=== PATIENT | male | born 1965 | race Caucasian/White ===

== ENCOUNTER 2019-01-06 11:03 | Emergency (ER) | payer OTHER ==
[~2019-01-06] VITALS: Ht 190.5 cm; Wt 124.7 kg
--- OUTSIDE RECORDS SUMMARY | ~2019-01-06 | XMS | Encounter Summary ---
Demographics + + + | Address | [address] | | | [place] [address] | + + + | Home Phone | | + + + | Preferred Language | Unknown | + + + | Marital Status | | + + + | Taoism Affiliation | Unknown | + + + | Race | Unknown | + + + | Ethnic Group | Unknown | + + + Author + + + | Author | [facility] | | | and [place] | + + + | Organization | [facility] | | | and [place] | + + + | Address | Unknown | + + + | Phone | Unavailable | + + + Support + + +---------+ + | Name | Relationship | Address | Phone | + + +---------+ + | Tata Kessler | ECON | Unknown | | + + +---------+ + Care Team Providers + +------+ + | Care Accounting Analyst Name | Role | Phone | + +------+ + | Gemini Castorena | PCP | | + +------+ + Reason for Referral Diagnostic/Screening (Routine) +--------+--------+ + + + + | Status | Reason | Specialty | Diagnoses / | Referred By | Referred To | | | | | Procedures | Contact | Contact | +--------+--------+ + + + + | Closed | | | Diagnoses | Yannick, | OP ST | | | | | Injury of | Justin | PAOLA | | | | | left | Matthew, | [facility] | | | | | shoulder, | MD [address] | [address] | | | | | initial | [address] | [address]VE | | | | | encounter | [place], | [place], [place] | | | | | Procedures | [place] | [address] | | | | | MRI Shoulder | [address] | Phone: | | | | | Left wo | Phone: | [phone] | | | | | Contrast | [phone] | Fax: | | | | | | Fax: | [phone] | | | | | | [phone] | | +--------+--------+ + + + + Reason for Visit + + + | Reason | Comments | + + + | New Patient | | + + + | Shoulder Pain | Left. Onset 2014 | + + + Evaluate & Treat (Routine) +--------+--------+ + + + + | Status | Reason | Specialty | Diagnoses / | Referred By | Referred To | | | | | Procedures | Contact | Contact | +--------+--------+ + + + + | Closed | | Orthopedic | Diagnoses | Raffaele, | Yannick, | | | | Surgery | Sprain of | LAWSON James | Justin | | | | | left rotator | [address] | MD Matthew | | | | | cuff | [address] | [address] | | | | | capsule, | [place], | [place] | | | | | initial | [place] | [place] | | | | | encounter | [address] | [address] | | | | | | Phone: | Phone: | | | | | | [phone] | [phone] | | | | | | Fax: | Fax: | | | | | | [phone] | [phone] | +--------+--------+ + + + + Encounter Details +--------+---------+ + + + | Date | Type | Department | Care Team | Description | +--------+---------+ + + + | 12/04/ | Office | [facility] | Justin Lanier | Injury of left | | 2019 | Visit | ORTHOPEDIC SURGERY | MD Matthew [address] | shoulder, initial | | | | [address] [facility] | [address] [place] | encounter (Primary | | | | [place], [place] | [place] [address] | Dx) | | | | [address] | [phone] | | | | | [phone] | | | +--------+---------+ + + + Social History + +-------+ +--------+------+ | Tobacco Use | Types | Packs/Day | Years | Date | | | | | Used | | + +-------+ +--------+------+ | Never Smoker | | | | | + +-------+ +--------+------+ + +---+---+---+ | Smokeless Tobacco: | | | | | Never Used | | | | + +---+---+---+ + + | Comments: Smokes a cigar once a year | + + + + +---------+ + | Alcohol Use | Drinks/We | oz/Week | Comments | | | ek | | | + + +---------+ + | Yes | 0 | 0.0 | 1 Drink weekly than couple on weekends | | | Standard | | | | | drinks or | | | | | | | | | | equivalen | | | | | t | | | + + +---------+ + + + + | Sex Assigned at | Date Recorded | | | | + + + | Not on file | | + + + + + + + | Job Start Date | Occupation | Industry | + + + + | Not on file | Not on file | Not on file | + + + + + + + + | Travel History | Travel Start | Travel End | + + + + + + | No recent travel history available. | + + documented as of this encounter Last Filed Vital Signs + + + + | Vital Sign | Reading | Time Taken | + + + + | Blood Pressure | - | - | + + + + | Pulse | - | - | + + + + | Temperature | - | - | + + + + | Respiratory Rate | - | - | + + + + | Oxygen Saturation | - | - | + + + + | Inhaled Oxygen | - | - | | Concentration | | | + + + + | Weight | 121.1 kg (267 lb) | 12/04/2018 1038 PST | + + + + | Height | 190.5 cm (6' 3") | 12/04/2018 1038 PST | + + + + | Body Mass Index | 33.37 | 12/04/2018 1038 PST | + + + + documented in this encounter Functional Status + + + + | Functional Status | Response | Date of Assessment | + + + + | Are you deaf or do you have serious | No | 08/19/2015 | | difficulty hearing? | | | + + + + | Are you blind or do you have serious | No | 08/19/2015 | | difficulty seeing, even when wearing | | | | glasses? | | | + + + + | Do you have serious difficulty walking or | No | 08/19/2015 | | climbing stairs? (5 years old or older) | | | + + + + | Do you have difficulty dressing or bathing? | No | 08/19/2015 | | (5 years old or older) | | | + + + + | Because of a physical, mental, or emotional | No | 08/19/2015 | | condition, do you have difficulty doing | | | | errands alone such as visiting a doctor's | | | | office or shopping? [15 years old or | | | | older)] | | | + + + + + + + + | Cognitive Status | Response | Date of Assessment | + + + + | Because of a physical, mental, or emotional | No | 08/19/2015 | | condition, do you have serious difficulty | | | | concentrating, remembering, or making | | | | decisions? (5 years old or older) | | | + + + + documented as of this encounter Patient Instructions Patient Instructions Justin Lanier MD - 12/04/2018 12:32 PST RICE RICE stands for rest, ice, compression, and elevation. Doing these things helps limit pain and swelling after an injury. RICE also helps injuries heal faster. Use RICE for sprains, st rains, and severe bruises or bumps. Follow the tips on this handout and begin RICE as soon a s possible after an injury. Rest Pain is your body s way of telling you to rest an injured area. Whether you have hurt an elbow, hand, foot, or knee, limiting its use will prevent further injury and help you heal. Ice Applying ice right after an injury helps prevent swelling and reduce pain. Don t place ic e directly on your skin. Wrap a cold pack or bag of ice in a thin cloth. Place it over the injured area. Ice [id number]. Don t ice for more [id number] at a time. Compression Putting pressure (compression) on an injury helps prevent swelling and provides support. Wrap the injured area firmly with an elastic bandage. If your hand or foot tingles, beco mes discolored, or feels cold to the touch, the bandage may be too tight. Rewrap it more loo sely. If your bandage becomes too loose, rewrap it. Do not wear an elastic bandage overnight. Elevation Keeping an injury elevated helps reduce swelling, pain, and throbbing. Elevation is most ef fectivewhen the injury is kept elevated higher than the heart. Call your healthcare provider if you notice any of the following: Fingers or toes feel numb, are cold to the touch, or change color. Skin looks shiny or tight. Pain, swelling, or bruising worsens and is not improved with elevation. Date Last Reviewed: 01/28/201819990933-0572 As Seen on TV. [address] [place] [address]. All righ ts reserved. This information is not intended as a substitute for professional medical care. Always follow your healthcare professional's instructions. documented in this encounter Progress Notes Justin Lanier MD - 12/04/2018 1100 PSTFormatting of this note might be differe nt from the original. [facility] HISTORY AND PHYSICAL EXAMINATION Pt. Name/Age/: Jeancarlos Kessler 53 y.o. 1965 Primary Care Physician: Gemini Castorena Chief Complaint/Reason for Visit: New Patient and Shoulder Pain (Left. Onset 2014) History of Present Illness: The patient is a pleasant 53 y.o. male who presents with a 4 ye ar history of left shoulder pain. He states that it began after he had cervical neck surger y. He had C5-C6 and C7 fused. After surgery, he initially had considerable weakness in his left shoulder. That improved to some degree but he has had at least intermittent pain sinc e that time. Moving his arm up and across his body makes his pain worse. He has tried anti -inflammatories, physical therapy, ice, heat and healthcare marketer. None of those helped si gnificantly. Rest makes his pain better. He has been able to get back to doing things that he lives such as weight lifting. He recently tried to do pushups but was unable to do them after a week due to pain. He feels like he has been slowly getting worse. He is able do m ost of his normal daily activities albeit with adjustments. He does not use tobacco. He lo calizes most of the pain to his anterior shoulder. He also complains of intermittent left hand numbness and tingling involving the thumb, inde x and fingers. This usually happens when he is doing certain activities such as gripping an d we'll. It has been present for years and is not getting worse Past Medical History: Past Medical History: Diagnosis Date Adverse effect of anesthesia wakes up during surgery; tries to get out of bed before completely awake Arthritis Gout Hypertension Osteoarthritis RA (rheumatoid arthritis) ([facility]) Sleep apnea "borderline" no CPAP Past Surgical History: Procedure Laterality Date ANTERIOR CRUCIATE LIGAMENT REPAIR 1983 left knee APPENDECTOMY 2011 broken arm 1977 left CERVICAL SPINE SURGERY N/A 08/18/2015 Procedure: C5-6, C6-7 Anterior Cervical Discectomy w/ Fusion and Plating; Surgeon: Alvaro Rose DO; Location: [facility] [place] MAIN OR REFRACTIVE SURGERY WISDOM TOOTH EXTRACTION Allergies: No Known Allergies Current Medications: Current Outpatient Prescriptions Medication Sig Dispense Refill acetaminophen (TYLENOL) 500 mg tablet Take 500 mg by mouth as needed for Pain. cyclobenzaprine (FLEXERIL) 10 mg tablet Take 1 tablet by mouth every 8 hours as needed for Muscle spasms. (Patient not taking: Reported on 12/04/2018) 60 tablet 3 HYDROcodone-acetaminophen (NORCO) 5-325 mg per tablet Take 1-2 tablets by mouth every 4 hours as needed for Pain. (Patient not taking: Reported on 12/04/2018) 90 tablet 0 indomethacin (INDOCIN SR) 75 mg CR capsule Take 75 mg by mouth 2 times daily. lisinopril-hydrochlorothiazide (PRINZIDE,ZESTORETIC) 20-12.5 MG per tablet Take 1 table t by mouth Daily. Multiple Vitamins-Minerals (MULTIVITAMIN PO) Take by mouth Daily. [place]-3 Fatty Acids (OMEGA 3 PO) Take 1 capsule by mouth Daily. No current facility-administered medications for this visit. Family History: Family History Problem Relation Age of Onset Migraines Mother Headache Mother Heart disease Mother Other (see comment) Mother back or neck prob Cancer Father skin cancer Heart disease Father High blood pressure Father Arthritis Father Social History: Social History Social History Marital status: Spouse name: N/A Number of children: N/A Years of education: N/A Occupational History Not on file. Social History Main Topics Smoking status: Never Smoker Smokeless tobacco: Never Used Comment: Smokes a cigar once a year Alcohol use 0.0 oz/week Comment: 1 Drink weekly than couple on weekends Drug use: No Comment: In the past 1989 Sexual activity: Not on file Other Topics Concern Not on file Social History Narrative No narrative on file Review of Systems All of these are negative unless otherwise marked Eyes: [] Double vision [x] Glasses/contacts [] Failing vision Respiratory: [] Asthma/Wheezing [] Pneumonia [] Night sweats [] Shortness of breath [] Chronic cough [] Coughing up blood [] Exposure to tuberculosis Cardiovascular: [] Heart Problems [x] Hypertension [] Heart murmur [] Palpitations [] Rheumatic fever [] Phlebitis [] Chest pain [] Ankle swelling [] Leg cramps [] Racin g heart [x] Skipping beats [] Blood clots Urinary Tract: [] Painful urination [] Kidney Stones [] Any urine leakage [] Weak urine stream [] Night urination [] Urine infections [] Bedwetting [] Blood in urine Ear/Nose/Throat: [] Frequent Colds [] Sinus Disease [] Nose obstruction [x] Sneezing Spells [] Change in taste [] Artificial teeth [x] Ears ringing [] Ear pain [x] Hearing lo ss [] Teeth problems [] Hoarseness [] Neck swelling [] Sore throat [] Congestion [] Nosebleeds [] Nasal allergies Gastrointestinal: [] Abdominal pain [] Heartburn [] Blood from rectum [] Colitis [] Gallbladder problems [] Troubl e swallowing [] Bloated stomach [] Change in stools [] Vomiting blood [] Nausea [] Hemorrhoids [] Jaundice [ ] Hepatitis [] Diarrhea [] Constipation [] Diverticulitis Musculoskeletal: [] Physical handicaps [x] Back or shoulder pain [x]Rheumatoid disease [x] Osteoarthritis [x] Joint pain [x] Joint swelling [x]Gout [x] Leg cramps at night Skin: [x] Skin rashes [] Itching/Burning [] Skin bruises easi ly [] Artificial tanning [] Skin cancer [] Hair loss [] Changes in moles Psychiatric: [] Depression [] Suicidal thoughts [x] Sleep pattern changes [] Appetite changes [] Recent counseling [] Nervousness/anxiety [] Physical violence [] Marital problems Neurological: [x] Headaches [] Seizures [] Stroke/TIA [] Faintness [] Tremors [x] Numbness [] Dizziness [] Changes in handwriting [] Memory loss [x] Shooting pains Endocrine: [] Thyroid [] Diabetes Systemic: []Weight loss/gain (over 10 lbs) []Fever/chills []Fatigue [] Sleeping Difficulties [] Speech change [] Voice change Admission Weight: Weight: 121.1 kg (267 lb) BMI: Body mass index is 33.37 kg/m. Physical Examination: Ht 1.905 m (6' 3") | Wt 121.1 kg (267 lb) | BMI 33.37 kg/m General: Alert, oriented, no acute distress HEENT: Normocephalic, atraumatic Cardiovascular: Regular rate and rhythm Respiratory: Breathing normally at a regular rate Ortho Exam Left Shoulder Exam Right Left Forward Flexion 160 160 Abduction 160 160 External Rotation 60 40 Internal rotation T10 L2 Tender to Palpation: AC joint External Rotation Strength 4/5 Internal Rotation Strength 5/5 Hawkin's Negative Neer's Positive Lynne's Positive Speed's Negative Yergason's Negative Skin: intact Radial pulse 2+. Sensation intact to light touch in the first dorsal webspace, and the pads of the small and index fingers. Able to flex and extend the thumb at the interphalangeal venecia int, make an "ok" sign, adduct and abduct the fingers, and oppose the thumb to the small fin dipti. Positive Tabatha's compression test at the carpal tunnel with positive Tinel's of the carpal tunnel per Diagnostic Studies: Imaging 2 views of the left shoulder demonstrate no fractures or dislocations. The humeral head is centered on the glenoid. There is some acromioclavicular joint arthrosis noted. There is no significant glenohumeral osteoarthrosis. There is mild cystic change at the greater tube rosity. Previous electrodiagnostic testing performed on 01/10/2017 demonstrated no sign of cervical radiculopathy or carpal tunnel. Labs- Lab Results Component Value Date NA 142 07/27/2015 K 3.6 07/27/2015 CL 106 07/27/2015 CO2 28 07/27/2015 ANIONGAP 8 07/27/2015 GLU 96 07/27/2015 BUN 14 07/27/2015 CREA 0.85 07/27/2015 GFRNONAA >60 07/27/2015 CALCIUM 10.0 07/27/2015 WBC 7.2 07/27/2015 HGB 16.1 07/27/2015 HCT 47.1 07/27/2015 MCV 96.5 07/27/2015 PLT 160 07/27/2015 INR 0.97 07/27/2015 Assessment and Plan: 1. Injury of left shoulder, initial encounter XR Shoulder Left 2 + Vw MRI Shoulder Left wo Contrast The patient is a pleasant 53 y.o. male who presents with upper extremity weakness and pain after previous surgery. Treatment options were discussed with the patient including non-oper ative treatment modalities. Considering the nature of the patient's condition, decision was made to proceed with an MRI of the left shoulder. He is guarding been through therapy twice . This will rule out a large rotator cuff tear. If he had one, I think that we were treati ng surgically. If not, we can begin trying more nonoperative treatment modalities. He woul d like to get his MRI in [place] and I think that is reasonable. We'll see him back after the MRI.. Follow-up: Return After MRI. with no x-ray Portions of this report were transcribed using voice recognition software. Every effort wa s made to ensure accuracy; however, inadvertent computerized programming coordinator errors may be pre sent. I appreciate the opportunity to help with the management of this patient. Justin Lanier MD documented in this encounter Plan of Treatment + +--------+ + + | Name | Priori | Associated Diagnoses | Order Schedule | | | ty | | | + +--------+ + + | MRI Shoulder Left wo Contrast | Routin | Injury of left | Expected: | | | e | shoulder, initial | 12/04/2018, Expires: | | | | encounter | 12/05/2019 | + +--------+ + + documented as of this encounter Results XR Shoulder Left 2 + Vw (12/04/2018 10:37 PST) + + | Specimen | + + | | + + + + + | Narrative | Performed At | + + + | XR SHOULDER LEFT 2 + VW 12/04/2018 10:37 AM HISTORY: LEFT SHOULDER | [facility] | | INJURY. COMPARISON: None. FINDINGS: There are no acute | | | osseous findings. Moderate degenerative changes are present of the AC | | | joint with adjacent ossifications. The glenohumeral joint is intact. | | | Bone mineralization is normal. Mild scarring is in the left midlung. | | | Soft tissue structures are unremarkable. IMPRESSION - No acute | | | osseous findings. Moderate degenerative changes of AC joint. | | | Dictated and Signed by: Sukumar Ontiveros MD Electronically signed: | | | 12/04/2018 11:03 AM | | + + + + + | Procedure Note | + + | Henry, Rad Results In - 12/04/2018 1107 PST XR SHOULDER LEFT 2 + VW 12/04/2018 10:37 AM | | | | HISTORY: LEFT SHOULDER INJURY. | | | | COMPARISON: None. | | | | FINDINGS: | | There are no acute osseous findings. Moderate degenerative changes are present | | of the AC joint with adjacent ossifications. The glenohumeral joint is intact. | | Bone mineralization is normal. Mild scarring is in the left midlung. Soft tissue | | structures are unremarkable. | | | | IMPRESSION - | | No acute osseous findings. | | | | Moderate degenerative changes of AC joint. | | | | Dictated and Signed by: Sukumar Ontiveros MD | | Electronically signed: 12/04/2018 11:03 AM | + + + +---------+ + + | Performing | Address | City/State/Zipcode | Phone Number | | Organization | | | | + +---------+ + + | [facility] | | | | + +---------+ + + documented in this encounter Visit Diagnoses + + | Diagnosis | + + | Injury of left shoulder, initial encounter - Primary | + + documented in this encounter
--- OUTSIDE RECORDS SUMMARY | ~2019-01-06 | XMS | Encounter Summary ---
Demographics + + + | Address | [address] | | | [place] [address] | + + + | Home Phone | | + + + | Preferred Language | Unknown | + + + | Marital Status | | + + + | Evangelical Affiliation | Unknown | + + + | Race | Unknown | + + + | Ethnic Group | Unknown | + + + Author + + + | Author | [facility] | | | and [place] | + + + | Organization | [facility] | | | and [place] | [...] Team Providers + +------+ + | Care Animal Nutritionist Name | Role | Phone | + +------+ + | Gemini Castorena | PCP | | + +------+ + Reason for Visit +--------+ + | Reason | Comments | +--------+ + | Other | | +--------+ + Encounter Details +--------+ + + + + | Date | Type | Department | Care Team | Description | +--------+ + + + + | 12/30/ | Telephone | [facility] | Justin Lanier | Other | | 2019 | | ORTHOPEDIC SURGERY | MD [address] | | | | | [address] [facility] | [place] | | | | | [place] | [place] [address] | | | | | [address] | [phone] | | | | | [phone] | | | +--------+ + + + + Social History + +-------+ [...] + + documented as of this encounter Functional Status + + + [...] + + documented as of this encounter Plan of Treatment Not on filedocumented as of this encounter Visit Diagnoses Not on filedocumented in this encounter"
--- OUTSIDE RECORDS SUMMARY | ~2019-01-06 | XMS | Encounter Summary ---
Demographics + + + | Address | [address] | | | [place] [address] | + + + | Home Phone | | + + + | Preferred Language | Unknown | + + + | Marital Status | | + + + | Cheondoism Affiliation | Unknown | + + + | Race | Unknown | + + + | Ethnic Group | Unknown | + + + Author + + + | Author | [facility] | | | and [place] | + + + | Organization | [facility] | | | and [place] | [...] Team Providers + +------+ + | Care Ice Seller Name | Role | Phone | + +------+ + | Gemini Castorena | PCP | | + +------+ + Reason for Visit + + + | Reason | Comments | + + + | Imaging Only | | + + + Encounter Details +--------+ + + + + | Date | Type | Department | Care Team | Description | +--------+ + + + + | 03/13/ | Telephone | [facility] | Yannick Justin | Imaging Only | | 2018 | | ORTHOPEDIC SURGERY | MD [address] | | | | | [address] | [facility] [place] | | | | | [place] | [place] [address] | | | | | [address] | [phone] | | | | | [phone] | | | +--------+ + + + [...]
--- OUTSIDE RECORDS SUMMARY | ~2019-01-06 | XMS | Encounter Summary ---
Demographics + + + | Address | [address] | | | [place] [address] | + + + | Home Phone | | + + + | Preferred Language | Unknown | + + + | Marital Status | | + + + | Mandaeism Affiliation | Unknown | + + + | Race | Unknown | + + + | Ethnic Group | Unknown | + + + Author + + + | Author | [facility] | | | and [place] | + + + | Organization | [facility] | | | and [place] | [...] Team Providers + +------+ + | Care Assistant Corporate Controller Name | Role | Phone | + [...] | | | left | Matthew, | [facility] | | | | | shoulder, | MD [address] | [address] | | | | | initial | [address] | | | | | encounter | [place], | [place], [place] | | | | | Procedures | [place] | [address] | | | | | MRI Shoulder | [address] | Phone: | | | | | Left wo | Phone: | [phone] | | | | | Contrast | [phone] | Fax: | | | | | | Fax: | [phone] | | | | | | [phone] | | +--------+--------+ + + + + [...] | | | | | capsule, | [place], | [place] | | | | | initial | [place] | [place] | | | | | encounter | [address] | [address] | | | | | | Phone: | Phone: | | | | | | [phone] | [phone] | | | | | | Fax: | Fax: | | | | | | [phone] | [phone] | +--------+--------+ + + + + Encounter Details +--------+---------+ + + + | Date | Type | Department | Care Team | Description | +--------+---------+ + + + | 12/04/ | Office | [facility] | Justin Lanier | Injury of left | | 2019 | Visit | ORTHOPEDIC SURGERY | MD Matthew [address] | shoulder, initial | | | | [address] [facility] | [address] [place] | encounter (Primary | | | | [place], [place] | [place] [address] | Dx) | | | | [address] | [phone] | | | | | [phone] | | | +--------+---------+ + + + [...] Place it over the injured area. Ice [id number]. Don t ice for more [id number] at a time. Compression Putting pressure (compression) [...] not improved with elevation. Date Last Reviewed: 01/28/201819995701-[address] [employer] [place] [address]. All righ ts reserved. This information is not intended as a substitute for professional medical care. Always follow your healthcare professional's instructions. documented in this encounter Progress Notes Justin Lanier MD - 12/04/2018 1100 PSTFormatting of this note might be differe nt from the original. [facility] HISTORY AND PHYSICAL EXAMINATION Pt. [...] anti -inflammatories, physical therapy, ice, heat and social worker palliative care. None of those helped si gnificantly. Rest [...] Arthritis Gout Hypertension Osteoarthritis RA (rheumatoid arthritis) ([facility]) Sleep apnea "borderline" no CPAP Past Surgical History: Procedure Laterality Date ANTERIOR CRUCIATE LIGAMENT REPAIR 1983 left knee APPENDECTOMY 2011 broken arm 1977 left CERVICAL SPINE SURGERY N/A 08/18/2015 Procedure: C5-6, C6-7 Anterior Cervical Discectomy w/ Fusion and Plating; Surgeon: Alvaro Rose DO; Location: [facility] MAIN OR REFRACTIVE SURGERY WISDOM TOOTH EXTRACTION [...] Vitamins-Minerals (MULTIVITAMIN PO) Take by mouth Daily. Turner-3 Fatty Acids (OMEGA 3 PO) Take 1 [...] d like to get his MRI in [place] and I think that is reasonable. We'll see him back after the MRI.. Follow-up: Return After MRI. with no x-ray Portions of this report were transcribed using voice recognition software. Every effort wa s made to ensure accuracy; however, inadvertent computerized pipe buffer errors may be pre sent. I appreciate [...]
--- OUTSIDE RECORDS SUMMARY | ~2019-01-06 | XMS | Encounter Summary ---
Demographics + + + | Address | [address] | | | [place] [address] | + + + | Home Phone | | + + + | Preferred Language | Unknown | + + + | Marital Status | | + + + | Gnosticist Affiliation | Unknown | + + + | Race | Unknown | + + + | Ethnic Group | Unknown | + + + Author + + + | Author | [facility] | | | and [place] | + + + | Organization | [facility] | | | and [place] [...] Team Providers + +------+ + | Care Drum Puller Name | Role | Phone | + +------+ + | Gemini Castorena | PCP | | + +------+ + Encounter Details +--------+ + + + + | Date | Type | Department | Care Team | Description | +--------+ + + + + | 12/04/ | [facility] | [facility] | Justin Lanier | Injury of left | | 2019 | Encounter | [facility] GENI XRAY | MD Matthew [address] | shoulder, initial | | | | [address] [place] | [address] | encounter | | | | [place] | [place] [address] | | | | | [address] | [phone] | | | | | [phone] | | | +--------+ + + + [...] + + documented as of this encounter Medications at Time of Discharge + + + +---------+ + + | Medication | Sig | Dispensed | Refills | Start | End Date | | | | | | Date | | + + + +---------+ + + | acetaminophen | Take 500 mg by mouth | | 0 | | | | (TYLENOL) 500 mg | as needed for Pain. | | | | | | tablet | | | | | | + + + +---------+ + + | cyclobenzaprine | Take 1 tablet by | 60 | 3 | 12/17/20 | | | (FLEXERIL) 10 mg | mouth every 8 hours | tablet | | 15 | | | tablet | as needed for Muscle | | | | | | | spasms. | | | | | + + + +---------+ + + | | Take 1-2 tablets by | 90 | 0 | 12/17/20 | | | HYDROcodone-acetamin | mouth every 4 hours | tablet | | 15 | | | ophen (NORCO) 5-325 | as needed for Pain. | | | | | | mg per tablet | | | | | | + + + +---------+ + + | | Take 1 tablet by | | 0 | 09/28/20 | | | lisinopril-hydrochlo | mouth Daily. | | | 13 | | | rothiazide | | | | | | | (PRINZIDE,ZESTORETIC | | | | | | | ) 20-12.5 MG per | | | | | | | tablet | | | | | | + + + +---------+ + + | Multiple | Take by mouth | | 0 | | | | Vitamins-Minerals | Daily. | | | | | | (MULTIVITAMIN PO) | | | | | | + + + +---------+ + + | Scheller-3 Fatty | Take 1 capsule by | | 0 | | | | Acids (OMEGA 3 PO) | mouth Daily. | | | | | + + + +---------+ + + | indomethacin | Take 75 mg by mouth | | 0 | 10/03/19 | | | (INDOCIN SR) 75 mg | 2 times daily. | | | 19 | 9 | | CR capsule | | | | | | + + + +---------+ + + documented as of this encounter Plan of Treatment Not on filedocumented as of this encounter Procedures + +--------+ + + + | Procedure Name | Priori | Date/Time | Associated Diagnosis | Comments | | | ty | | | | + +--------+ + + + | XR SHOULDER LEFT 2 + | Routin | 12/04/2018 | Injury of left | Results for this | | VW | e | 10:37 PST | shoulder, initial | procedure are in the | | | | | encounter | results section. | + +--------+ + + + documented in this encounter Results XR Shoulder Left 2 [...] | Injury of left shoulder, initial encounter | + + documented in this encounter"
--- OUTSIDE RECORDS SUMMARY | ~2019-01-06 | XMS | Encounter Summary ---
Demographics + + + | Address | [address] | | | [place] [address] | + + + | Home Phone | | + + + | Preferred Language | Unknown | + + + | Marital Status | | + + + | Hoahaoism Affiliation | Unknown | + + + | Race | Unknown | + + + | Ethnic Group | Unknown | + + + Author + + + | Author | [facility] | | | and [place] | + + + | Organization | [facility] | | | and [place] [...] Team Providers + +------+ + | Care Business Enterprise Officer Name | Role | Phone | + +------+ + | Gemini Castorena | PCP | | + +------+ + Encounter Details +--------+ + + + + | Date | Type | Department | Care Team | Description | +--------+ + + + + | 12/04/ | [facility] | [facility] | Justin Lanier | Injury of left | | 2019 | Encounter | MED CTR GENI XRAY | MD Matthew [address] | shoulder, initial | | | | [address] [place] | [address] | encounter | | | | [place] | [place] [address] | | | | | [address] | [phone] | | | | | [phone] | | | +--------+ + + + [...] + + + +---------+ + + | [place]-3 Fatty | Take 1 capsule by | [...]
--- OUTSIDE RECORDS SUMMARY | ~2019-01-06 | XMS | Encounter Summary ---
Demographics + + + | Address | [address] | | | [place] [address] | + + + | Home Phone | | + + + | Preferred Language | Unknown | + + + | Marital Status | | + + + | Anabaptism Affiliation | Unknown | + + + | Race | Unknown | + + + | Ethnic Group | Unknown | + + + Author + + + | Author | [facility] | | | and [place] | + + + | Organization | [facility] | | | and [place] [...] Team Providers + +------+ + | Care Dental Prosthetist Name | Role | Phone | + [...] [address] | | | | | [address] [facility] | [address] | | | | | [place] | [place] [address] | | | | | [address] | [phone] | | | | | [phone] | | | +--------+ + + + [...]
--- OUTSIDE RECORDS SUMMARY | ~2019-01-06 | XMS | Encounter Summary ---
Demographics + + + | Address | [address] | | | [place] [address] | + + + | Home Phone | | + + + | Preferred Language | Unknown | + + + | Marital Status | | + + + | Orthodoxy Affiliation | Unknown | + + + | Race | Unknown | + + + | Ethnic Group | Unknown | + + + Author + + + | Author | [facility] | | | and [place] | + + + | Organization | [facility] | | | and [place] [...] Team Providers + +------+ + | Care Dispatcher Maintenance Name | Role | Phone | + +------+ + | Gemini Castorena | PCP | | + +------+ + Reason for Visit + + + | Reason | Comments | + + + | Follow-up, Office | Review MRI | | Visit | | + + + | Shoulder Injury | Left. Strain of shoulder | + + + Encounter Details +--------+---------+ + + + | Date | Type | Department | Care Team | Description | +--------+---------+ + + + | 12/30/ | Office | [facility] | Justin Lanier | Incomplete tear of | | 2018 | Visit | ORTHOPEDIC SURGERY | MD Matthew [address] | left rotator cuff, | | | | [address] [facility] | [address] [facility] | unspecified whether | | | | [place] | [place] [address] | traumatic (Primary | | | | [address] | [phone] | Dx); Biceps | | | | [phone] | | tendonitis on left | +--------+---------+ + + + Social History [...] Weight | 121.1 kg (267 lb) | 12/30/2018801 PDT | + + + + | Height | 190.5 cm (6' 3") | 12/30/2018801 PDT | + + + + | Body Mass Index | 33.37 | 12/30/2018801 PDT | + + + + documented in [...] Instructions Patient Instructions Justin Lanier MD - 12/30/2018 9:14 PDT Understanding a Rotator Cuff Tendon Tear The rotator cuff is a group of 4 muscles and their tendons in the shoulder. The muscles are located in the front, back, and top of the shoulder joint. They each have a strong band of tissue (tendon) that attaches to the top of the upper arm bone. This helps keep the arm bone firmly in place in the socket of the shoulder joint. The muscles and tendons of the rotator cuff also help the shoulder joint with certain movements. These include reaching the arm ov er the head and rotating the arm. Any one of the rotator cuff tendons can fray or tear from causes such as injury and overuse . A tear may be partial, with some of the tendon still intact. Or it may be a complete tear, with the tendon fully torn. Both types can cause pain and weakness, and limit arm and shoul beti movement. A rotator cuff tear often needs treatment to heal properly. Causes of a rotator cuff tendon tear Causes can include: Wear and tear of the tendons from aging or normal use over time Overuse of the tendons from sports or work activities, especially those that involve rep eated overhead movements Injury to the tendons from a fall or other accident Symptoms of a rotator cuff tendon tear Some people with a rotator cuff tendon tear have few or no symptoms. Others may have sympto ms that range from mild to severe. Possible symptoms include: Pain in your shoulder, which may be worse with overhead movements or at night from lying on the affected side Weakness in your arm and shoulder Trouble lifting your arm up or rotating your arm Clicking or crackling sounds when moving or using your arm and shoulder Treating a rotator cuff tendon tear Treatment for a rotator cuff tendon tear depends on several factors. These include the sanchez rity of the tear and your symptoms. Options may include: Resting your arm and shoulder. This involves limiting certain movements, such as reachin g above your head or lifting your arm up. These can slow healing and worsen symptoms. You ma y also need to avoid certain sports and types of work for a time. Cold packs or heat packs. These help reduce pain and swelling. Prescription or vwmy-hjv-tzgqbiy pain medicines. These help reduce pain and swelling. Injections of medicine into your shoulder. These help relieve pain and swelling for a ti me. Physical therapy and exercises. These help improve strength, flexibility, and range of motion in your arm and shoulder. Surgery. You may need surgery if your tendon is completely torn or if other treatments d on t relieve your symptoms. Different options are available. In many cases, the damaged te ndon is repaired. It is then reattached to your arm bone. Possible complications If a partial tear isn t given time to heal, it may get larger or tear completely. You may then need more treatment. Even with treatment, a partial or complete tear may sometimes have trouble healing. The problem may become long-term (chronic). This can cause ongoing pain, weakness, and limited m ovement of your arm and shoulder. When to call your healthcare provider Call your healthcare provider right away if you have any of these: Fever of 100.4F (38C) or higher, or as directed Symptoms that don t get better with treatment, or get worse After surgery, symptoms at the incision sites such as redness, warmth, swelling, bleedin g, or drainage New symptoms Date Last Reviewed: 12/08/201519994727-7308 [employer]. [address] [place] [address], [place] [address]. All righ ts reserved. This information is not intended as a substitute for professional medical care. Always follow your healthcare professional's instructions. documented in this encounter Progress Notes Justin Lanier MD - 12/30/2018 0815 PDTFormatting of this note might be differe nt from the original. [facility] RETURN CLINIC VISIT Pt. Name/Age/: Jeancarlos Kessler 53 y.o. 1965 Primary Care Physician: Gemini Castorena Chief Complaint/Reason for Visit: Follow-up, Office Visit (Review MRI) and Shoulder Injury (Left. Strain of shoulder) History of Present Illness: The patient is a pleasant 53 y.o. male who [facility] pain. Since his last visit, he had an MRI of his shoulder. This was obtained on 12/19/2018. He reports continued symptoms such as he has had in the past. I t bothers him with activity. He states that occasionally it will feel like his shoulder cat ches or goes out of socket. He has popping when he first gets up in the morning. The bigge st issue that he has is that his shoulder does not allow him to do many of the activities he wants to do. He has difficulty doing push-ups for example. He is able to do them for a fe w days but then the pain and soreness becomes too great and he is unable to continue doing t hem. Previously done physical therapy twice on the shoulder. This was after his cervical surger y. He reports no shoulder issues before the cervical spine surgery. Everything unfortunate ly began after. Past Medical History: Past Medical History: Diagnosis Date Adverse effect of anesthesia wakes up during surgery; tries to get out of bed before completely awake Arthritis Gout Hypertension Osteoarthritis RA (rheumatoid arthritis) ([facility]) Sleep apnea "borderline" no CPAP Past Surgical History: Procedure Laterality Date ANTERIOR CRUCIATE LIGAMENT REPAIR 1983 left knee APPENDECTOMY 2011 broken arm 1977 left CERVICAL SPINE SURGERY N/A 08/18/2015 Procedure: C5-6, C6-7 Anterior Cervical Discectomy w/ Fusion and Plating; Surgeon: Alvaro Rose DO; Location: [facility] MAIN OR REFRACTIVE SURGERY WISDOM TOOTH EXTRACTION Allergies: No Known Allergies Current Medications: Current Outpatient Prescriptions Medication Sig Dispense Refill acetaminophen (TYLENOL) 500 mg tablet Take 500 mg by mouth as needed for Pain. cyclobenzaprine (FLEXERIL) 10 mg tablet Take 1 tablet by mouth every 8 hours as needed for Muscle spasms. 60 tablet 3 HYDROcodone-acetaminophen (NORCO) 5-325 mg per tablet Take 1-2 tablets by mouth every 4 hours as needed for Pain. (Patient not taking: Reported on 12/04/2018) 90 tablet 0 lisinopril-hydrochlorothiazide (PRINZIDE,ZESTORETIC) 20-12.5 MG per tablet Take 1 table t by mouth Daily. Multiple Vitamins-Minerals (MULTIVITAMIN PO) Take by mouth Daily. nabumetone (RELAFEN) 750 mg tablet Take 750 mg by mouth 2 times daily. [place]-3 Fatty Acids (OMEGA 3 PO) Take 1 [...] of these are negative unless otherwise marked Musculoskeletal: [] Physical handicaps [] Back or shoulder pain []Rheumatoid disease [] Osteoarthritis [] Joint pain [] Joint swelling []Gout [] Leg cramps at night Endocrine: [] Thyroid [] Diabetes Admission Weight: Weight: 121.1 kg (267 lb) BMI: Body mass index is 33.37 kg/m. Physical Examination: Ht 1.905 m (6' 3") | Wt 121.1 kg (267 lb) | BMI 33.37 kg/m General: Alert, oriented, no acute distress HEENT: Normocephalic, atraumatic Cardiovascular: Regular rate and rhythm Respiratory: Breathing normally at a regular rate Ortho Exam Left Shoulder Exam Right Left Forward Flexion 160 150 Abduction 160 150 External Rotation 50 50 Internal rotation T10 T10 Tender to Palpation: biceps tendon External Rotation Strength 4/5 Internal Rotation Strength 5/5 Hawkin's Negative Neer's Negative Lynne's Positive Speed's Negative Yergason's Negative Negative anterior apprehension test. Some pain with posterior apprehension test. 1+ load- and-shift anteriorly and posteriorly. Radial pulse 2+. Sensation intact to light touch in the first dorsal webspace, and the pads of the small and index fingers. Able to flex and extend the thumb at the interphalangeal venecia int, make an "ok" sign, adduct and abduct the fingers, and oppose the thumb to the small fin dipti. Diagnostic Studies: Imaging MRI of the left shoulder dated 12/19/2018 reviewed. The patient does have some partial-thic kness tendon tearing of the infraspinatus and supra spinatus. This is an intrasubstance tea r. There is additionally some tendinosis of the tendon there. I do not see any sign of a f ull-thickness rotator cuff tear. The patient has a negative tension sign. Labs- Lab Results Component Value Date NA 142 07/27/2015 K 3.6 07/27/2015 CL 106 07/27/2015 CO2 28 07/27/2015 ANIONGAP 8 07/27/2015 GLU 96 07/27/2015 BUN 14 07/27/2015 CREA 0.85 07/27/2015 GFRNONAA >60 07/27/2015 CALCIUM 10.0 07/27/2015 WBC 7.2 07/27/2015 HGB 16.1 07/27/2015 HCT 47.1 07/27/2015 MCV 96.5 07/27/2015 PLT 160 07/27/2015 INR 0.97 07/27/2015 Assessment and Plan: 1. Incomplete tear of left rotator cuff, unspecified whether traumatic 2. Biceps tendonitis on left The patient is a pleasant 53 y.o. male who presents for a repeat visit with left shoulder p artial-thickness rotator cuff tear and biceps tendinitis. Treatment options were discussed w ith the patient including non-operative treatment modalities. Considering the nature of the patient's condition, decision was made to proceed with a left shoulder subacromial injection . I would like to see if he gets good relief out of this. I am hopeful that he will. If w e can do things it will decrease his pain and improve his function overall, I think that wou ld be beneficial for him. Hopefully if his pain decreases, he can strengthen the shoulder a nd do better overall. He is aware that with a small partial-thickness rotator cuff tear, it may get bigger over time. However we also had a discussion that many patients his age have similar findings on imaging. With regards to the small amount of posterior chondromalacia is noted by the radiologist on the shoulder MRI and to the patient's positive apprehension test, there is certainly a yuen ce that he is having some degree of micro-instability of the shoulder posteriorly. 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 He had no problems with it before he had a cervical spine surgery and has had problems with it sin ce. That does not is fairly fit. Additionally, at his age it is a less common problem. I think it is more likely to be a sign of some low-level osteoarthritis in the shoulder rather than vilma instability based on his exam. Risks, benefits and alternatives to injection were discussed with the patient. All of the p atient's questions were answered regarding the procedure. Consent was obtained. The patient agreed to undergo an injection of the Left subacromial injection. The area was prepared ster ilely using Betadine. A cold spray was used to numb the skin. 5 mLs of 1% lidocaine and 40 m g of kenalog were injected in the standard fashion. This was well tolerated by the patient. Follow-up: Return if symptoms worsen or fail to improve. with no x-ray Portions of this report were transcribed using voice recognition software. Every effort wa s made to ensure accuracy; however, inadvertent computerized cementer oil well errors may be pre sent. I appreciate the opportunity to help with the management of this patient. Justin Lanier MD documented in this encounter Plan of Treatment Not on filedocumented as of this encounter Visit Diagnoses + + | Diagnosis | + + | Incomplete tear of left rotator cuff, unspecified whether traumatic - Primary | + + | Biceps tendonitis on left Bicipital tenosynovitis | + + documented in this encounter Administered Medications + +--------+ +-------+------+ + | Medication Order | MAR | Action | Dose | Rate | Site | | | Action | Date | | | | + +--------+ +-------+------+ + | triamcinolone acetonide | Given | 12/31/19 | 40 mg | | Shoulder | | (KENALOG-40) 40 mg/mL injection | | 19 8:36 | | | -Left | | 40 mg 40 mg, Intra-articular, | | PDT | | | | | ONCE, Rod 12/30/18 at 1415, For 1 | | | | | | | dose, [place] well. Not for IV | | | | | | | use., | | | | | | + +--------+ +-------+------+ + +---+---+ | | | +---+---+ documented in this encounter
--- OUTSIDE RECORDS SUMMARY | ~2019-01-06 | XMS | Encounter Summary ---
Demographics + + + | Address | [address] | | | [place] [address] | + + + | Home Phone | | + + + | Preferred Language | Unknown | + + + | Marital Status | | + + + | Buddhism Affiliation | Unknown | + + + | Race | Unknown | + + + | Ethnic Group | Unknown | + + + Author + + + | Author | [facility] | | | and [place] | + + + | Organization | [facility] | | | and [...] Team Providers + +------+ + | Care Local Tanker Truck Driver Name | Role | Phone | + [...] + + | 12/30/ | Office | [facility] | Justin Lanier | Incomplete tear of | | 2018 | Visit | ORTHOPEDIC SURGERY | MD Matthew [address] | left rotator cuff, | | | | [address] [facility] | [facility] | unspecified whether | | | | [place] | [place] [address] | traumatic (Primary | | | | [address] | [phone] | Dx); Biceps | | | | [phone] | | tendonitis on left | +--------+---------+ [...] help reduce pain and swelling. Prescription or mncx-zea-wlrvmgg pain medicines. These help reduce pain and [...] or drainage New symptoms Date Last Reviewed: 12/08/201519990659-5436 [address] [place] [address], [place] [address]. All righ ts reserved. This information is not intended as a substitute for professional medical care. Always follow your healthcare professional's instructions. documented in this encounter Progress Notes Justin Lanier MD - 12/30/2018 0815 PDTFormatting of this note might be differe nt from the original. [facility] RETURN CLINIC VISIT Pt. Name/Age/: Jeancarlos Kessler 53 y.o. 1965 Primary Care Physician: Gemini Castorena Chief Complaint/Reason for Visit: Follow-up, Office Visit (Review MRI) and Shoulder Injury (Left. Strain of shoulder) History of Present Illness: The patient is a pleasant 53 y.o. male who [facility]. Since [...] and Plating; Surgeon: Alvaro Rose DO; Location: [facility] MAIN OR REFRACTIVE SURGERY WISDOM TOOTH EXTRACTION [...] 750 mg by mouth 2 times daily. 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 He had no problems with it before [...] made to ensure accuracy; however, inadvertent computerized door manager errors may be pre sent. I appreciate [...]
--- OUTSIDE RECORDS SUMMARY | ~2019-01-06 | XMS | Encounter Summary ---
Demographics + + + | Address | [address] | | | [place] [address] | + + + | Home Phone | | + + + | Preferred Language | Unknown | + + + | Marital Status | | + + + | Moravian Affiliation | Unknown | + + + | Race | Unknown | + + + | Ethnic Group | Unknown | + + + Author + + + | Author | [facility] | | | and [place] | + + + | Organization | [facility] | | | and [place] | [...] Team Providers + +------+ + | Care Promotion Writer Name | Role | Phone | + +------+ + | Gemini Castorena | PCP | | + +------+ + Encounter Details +--------+ + + + + | Date | Type | Department | Care Team | Description | +--------+ + + + + | 12/17/ | Imaging | [facility] | Provider, | | | 2019 | Exam | [facility] | MD Monica [address] | | | | | IMAGING | [address] | | | | | [phone] | [place] [address] | | +--------+ + + + + [...] | + +--------+ + + + | MRI SHOULDER LEFT WO | Routin | 12/17/2018 | | Results for this | | CONTRAST | e | 17:05 PDT | | procedure are in the | | | | | | results section. | + +--------+ + + + documented in this encounter Results MRI Shoulder Left wo Contrast (12/17/2018 17:05 PDT) + + | Specimen | + + | | + + + + + | Narrative | Performed At | + + + | External films for comparison only | [facility] | | | | | No results will be in the chart. | | + + + + +---------+ + + | Performing | Address | City/State/Zipcode | Phone Number | | Organization | | | | + +---------+ + + | [facility] | | | | + +---------+ + + documented in this encounter Visit Diagnoses Not on filedocumented in this encounter"
--- OUTSIDE RECORDS SUMMARY | ~2019-01-06 | XMS | Encounter Summary ---
Demographics + + + | Address | [address] | | | [place] [address] | + + + | Home Phone | | + + + | Preferred Language | Unknown | + + + | Marital Status | | + + + | Evangelical Affiliation | Unknown | + + + | Race | Unknown | + + + | Ethnic Group | Unknown | + + + Author + + + | Author | [facility] | | | and [place] | + + + | Organization | [facility] | | | [...] Team Providers + +------+ + | Care Soa Architect Name | Role | Phone | + [...] + + | 03/13/ | Telephone | [facility] | Yannick Justin | Imaging Only | | 2018 | | ORTHOPEDIC SURGERY | MD Matthew [address] | | | | | [address] [facility] | [facility] [place] | | | | | [place] | [place] [id number] | | | | | [address] | [phone] | | | | | [phone] | | | +--------+ + + + [...]
--- OUTSIDE RECORDS SUMMARY | ~2019-01-06 | XMS | Encounter Summary ---
Demographics + + + | Address | [address] | | | [place] [address] | + + + | Home Phone | | + + + | Preferred Language | Unknown | + + + | Marital Status | | + + + | Jewish Affiliation | Unknown | + + + | Race | Unknown | + + + | Ethnic Group | Unknown | + + + Author + + + | Author | [facility] | | | and [place] | + + + | Organization | [facility] | | | and [place] [...] Team Providers + +------+ + | Care Project Control Officer Name | Role | Phone | [...] | [facility] | MD [address] | | | | | IMAGING | [address] | | | | | [phone] | [place] [address] | | +--------+ + + + + [...]
--- OUTSIDE RECORDS SUMMARY | ~2019-01-06 | XMS | Clinical Summary ---
Demographics + + + | Address | [address] | | | [place] [address] | + + + | Home Phone | | + + + | Preferred Language | Unknown | + + + | Marital Status | | + + + | Orthodoxy Affiliation | Unknown | + + + | Race | Unknown | + + + | Ethnic Group | Unknown | + + + Author + + + | Author | [facility] | | | and [place] | + + + | Organization | [facility] | | | and [place] [...] Team Providers + +------+ + | Care Beverage Steward Name | Role | Phone | + +------+ + | Gemini Castorena | PP | | + +------+ + Allergies No Known Allergies Medications + + + +---------+------+------+-------+ | Medication | Sig | Dispensed | Refills | Star | End | Statu | | | | | | t | Date | s | | | | | | Date | | | + + + +---------+------+------+-------+ | | Take 1 tablet by | | 0 | 12/3 | | Activ | | lisinopril-hydrochlo | mouth Daily. | | | 0/20 | | e | | rothiazide | | | | 13 | | | | (PRINZIDE,ZESTORETIC | | | | | | | | ) 20-12.5 MG per | | | | | | | | tablet | | | | | | | + + + +---------+------+------+-------+ | [place]-3 Fatty | Take 1 capsule by | | 0 | | | Activ | | Acids (OMEGA 3 PO) | mouth Daily. | | | | | e | + + + +---------+------+------+-------+ | Multiple | Take by mouth | | 0 | | | Activ | | Vitamins-Minerals | Daily. | | | | | e | | (MULTIVITAMIN PO) | | | | | | | + + + +---------+------+------+-------+ | acetaminophen | Take 500 mg by mouth | | 0 | | | Activ | | (TYLENOL) 500 mg | as needed for Pain. | | | | | e | | tablet | | | | | | | + + + +---------+------+------+-------+ | | Take 1-2 tablets by | 90 | 0 | 12/1 | | Activ | | HYDROcodone-acetamin | mouth every 4 hours | tablet | | 7/20 | | e | | ophen (NORCO) 5-325 | as needed for Pain. | | | 15 | | | | mg per tablet | | | | | | | + + + +---------+------+------+-------+ | cyclobenzaprine | Take 1 tablet by | 60 | 3 | 12/1 | | Activ | | (FLEXERIL) 10 mg | mouth every 8 hours | tablet | | 7/20 | | e | | tablet | as needed for Muscle | | | 15 | | | | | spasms. | | | | | | + + + +---------+------+------+-------+ | nabumetone | Take 750 mg by mouth | | 0 | 03/2 | | Activ | | (RELAFEN) 750 mg | 2 times daily. | | | 1/20 | | e | | tablet | | | | 19 | | | + + + +---------+------+------+-------+ | indomethacin | Take 75 mg by mouth | | 0 | 01/0 | 04/0 | Disco | | (INDOCIN SR) 75 mg | 2 times daily. | | | 01/17 | 2/20 | ntinu | | CR capsule | | | | 19 | 19 | ed | + + + +---------+------+------+-------+ + + +-------+ +------+------+-------+ | Hospital, Clinic, or | Ordered | Route | Frequency | Star | End | Statu | | Other Facility | Dose | | | t | Date | s | | Administered | | | | Date | | | | Medication | | | | | | | + + +-------+ +------+------+-------+ | triamcinolone | 40 mg | IX | ONCE | 04/0 | 04/0 | Ended | | acetonide | | | | 2/20 | 2/20 | | | (KENALOG-40) 40 | | | | 19 | 19 | | | mg/mL injection 40 | | | | | | | | mg | | | | | | | + + +-------+ +------+------+-------+ Active Problems + + + | Problem | Noted Date | + + + | Biceps tendonitis on left | 12/30/2018 | + + + | Incomplete tear of left rotator cuff | 12/30/2018 | + + + | Cervical radiculopathy | 01/10/2017 | + + + | Obstructive sleep apnea syndrome | 08/18/2015 | + + + | Obesity (BMI 30.0-34.9) | 08/18/2015 | + + + | Marijuana use, episodic | 08/18/2015 | + + + | History of alcohol use | 08/18/2015 | + + + | Cervical spondylosis without myelopathy | 08/18/2015 | + + + | Arthritis | | + + + | Hypertension | | + + + Encounters +--------+ + + + + | Date | Type | Specialty | Care Team | Description | +--------+ + + + + | 12/30/ | Office | | Justin Lanier | Incomplete tear of | | 2018 | Visit | | MD Matthew | left rotator cuff, | | | | | | unspecified whether | | | | | | traumatic (Primary | | | | | | Dx); Biceps | | | | | | tendonitis on left | +--------+ + + + + | 12/30/ | Telephone | | Justin Lanier | Other | 2018 | | | MD Matthew | | +--------+ + + + + | 12/17/ | Imaging | | Provider, | | | 2018 | Exam | | MD Monica | | +--------+ + + + + | 12/10/ | Telephone | | Justin Lanier | Imaging Only | 2018 | | | MD Matthew | | +--------+ + + + + | 12/04/ | Hospital | | Justin Lanier | Injury of left | 2018 | Encounter | | MD Matthew | shoulder, initial | | | | | | encounter | +--------+ + + + + | 12/04/ | Office | | Justin Lanier | Injury of left | | 2019 | Visit | | MD Matthew | shoulder, initial | | | | | | encounter (Primary | | | | | | Dx) | +--------+ + + + + from Last 3 Months Family History + + +------+ + | Medical History | Relation | Name | Comments | + + +------+ + | Arthritis | Father | | | + + +------+ + | Cancer | Father | | skin cancer | + + +------+ + | Heart disease | Father | | | + + +------+ + | High blood pressure | Father | | | + + +------+ + | Headache | Mother | | | + + +------+ + | Heart disease | Mother | | | + + +------+ + | Migraines | Mother | | | + + +------+ + | Other (see comment) | Mother | | back or neck prob | + + +------+ + + +------+--------+ + | Relation | Name | Status | Comments | + +------+--------+ + | Father | | | | + +------+--------+ + | Mother | | | | + +------+--------+ + Social History + +-------+ +--------+------+ | [...] recent travel history available. | + + Last Filed Vital Signs + + + + | Vital Sign | Reading | Time Taken | + + + + | Blood Pressure | 128/74 | 01/10/2017 1404 PDT | + + + + | Pulse | 66 | 01/10/2017 1404 PDT | + + + + | Temperature | 36.9 C (98.4 F) | 08/19/2015801 PST | + + + + | Respiratory Rate | 18 | 10/02/2016803 PST | + + + + | Oxygen Saturation | 95% | 09/28/20151525 PST | + + + + | Inhaled Oxygen | - | - | | Concentration | | | + + + + | Weight | 121.1 kg (267 lb) | 12/30/2018801 PDT | + + + + | Height | 190.5 cm (6' 3") | 12/30/2018801 PDT | + + + + | Body Mass Index | 33.37 | 12/30/2018 0802 PDT | + + + + Plan of Treatment + + + + + | Health Maintenance | Due Date | Last Done | Comments | + + + + + | Colorectal Cancer | | | | | Screening | 7 | | | | (Colonoscopy) | | | | + + + + + | Vaccine: Zoster (1 | | | | | of 2) | 7 | | | + + + + + | Vaccine: | | 08/14/2013 | | | Dtap/Tdap/Td (2 - | 3 | | | | Td) | | | | + + + + + | Vaccine: Influenza | Completed | 07/17/2018 | | + + + + + Implants + +------+--------+ +--------+--------+--------+ | Implanted | Type | Area | Manufacture | Device | Shelf | Model | | | | | r | | Expira | / | | | | | | Identi | tion | Serial | | | | | | fier | Date | / Lot | + +------+--------+ +--------+--------+--------+ | John Grftn Pls 1cc Aseptic | | N/A: | OSTEOTECH - | | 12/21/ | [id number] | | - [id number]: Qty: | | Neck | OSTT | | 2017 | | | 1 on 08/18/2015 by Rose, | | | | | | /[id number] | | lAvaro Lantigua DO | | | | | | [id number] | | | | | | | | / | + +------+--------+ +--------+--------+--------+ | Spacer Cc Acf Lordotic 7mm | | N/A: | MUSCULOSKEL | | 05/20/ | [id number] | | Adv - | | Neck | ETAL | | 2018 | | | [id number]: | | | TRANSPLA - | | | /[id number] | | Qty: 1 on 08/18/2015 by | | | MUSC | | | [id number] | | Alvaro Rose DO | | | | | | 048 / | + +------+--------+ +--------+--------+--------+ | Spacer Cc Acf Lordotic 7mm | | N/A: | MUSCULOSKEL | | 05/20/ | [id number] | | Adv - | | Neck | ETAL | | 2018 | | | [id number]: | | | TRANSPLA - | | | /[id number] | | Qty: 1 on 08/18/2015 by | | | [facility]C | | | [id number] | | Alvaro Rose DO | | | | | | 047 / | + +------+--------+ +--------+--------+--------+ | Plate Ant Celeste Cerv | | N/A: | MEDTRONIC - | | | [id number] | | 47.5mm - [id number]: | | Spine | MEDT | | | 7 / / | | Qty: 1 on 08/18/2015 by | | Cervic | | | | | | Alvaro Rose DO | | al | | | | | + +------+--------+ +--------+--------+--------+ | Screw Slf-Tp V/A 4.0x19mm - | | N/A: | MEDTRONIC - | | | [id number] | | [id number]: Qty: 6 on | | Spine | MEDT | | | | | 08/18/2015 by Alvaro Rose | | Estelle | | | | | | A, DO | | al | | | | | + +------+--------+ +--------+--------+--------+ Procedures + +--------+ + + + | [...] section. | + +--------+ + + + | XR SHOULDER LEFT 2 + | Routin | 12/04/2018 | Injury of left | Results for this | | VW | e | 10:37 PST | shoulder, initial | procedure are in the | | | | | encounter | results section. | + +--------+ + + + from Last 3 Months Results MRI Shoulder Left wo Contrast (12/17/2018 [...] | | | + +---------+ + + XR Shoulder Left 2 + Vw (12/04/2018 [...] | | | + +---------+ + + from Last 3 Months Insurance + +--------+ +--------+ +---------+------+ | Payer | Benefi | Subscriber | Effect | Phone | Address | Type | | | t Plan | ID | kj | | | | | | / | | Dates | | | | | | Group | | | | | | + +--------+ +--------+ +---------+------+ | [facility] | PHP | [id number] | 09/30/19 | [phone] | | PPO | | PLAN | PEBB | | 18-Pre | 5 | | | | | PROV | | sent | | | | | | CHOICE | | | | | | + +--------+ +--------+ +---------+------+ + +--------+ +--------+ + + | Guarantor Name | Accoun | Relation to | Date | Phone | Billing Address | | | t Type | Patient | of | | | | | | | | | | + +--------+ +--------+ + + | Jeancarlos Kessler | Person | Self [birth year] | [address] | | | al/[place]aye | | 1965 | [phone] | [place] [address] | | | rachel | | | 4 (Home) | | + +--------+ +--------+ + + Advance Directives Patient has advance care planning documents, and code status on file. For more information, please contact:[facility] and [place] [address] + + + + + | Code Status | Date | Date | Comments | | | Activated | Inactivated | | + + + + + | Full Code | 08/18/2015 | 08/19/2015 | | | | 14:51 | 14:33 | | + + + + +
--- OUTSIDE RECORDS SUMMARY | ~2019-01-06 | XMS | Clinical Summary ---
Demographics + + + | Address | [address] | | | [place] [address] | + + + | Home Phone | | + + + | Preferred Language | Unknown | + + + | Marital Status | | + + + | Hinduism Affiliation | Unknown | + + + | Race | Unknown | + + + | Ethnic Group | Unknown | + + + Author + + + | Author | [facility] | | | and [place] | + + + | Organization | [facility] | | | and [place] [...] Team Providers + +------+ + | Care Tire Building Supervisor Name | Role | Phone | + [...] | | + + + +---------+------+------+-------+ | [place]-3 Fatty | Take 1 capsule by | [...] | OSTEOTECH - | | 12/21/ | [id number] | | - [id number]: Qty: | | Neck | OSTT | | 2017 | | | 1 on 08/18/2015 by Rose, | | | | | | /[id number] | | Alvaro Lantigua DO | | | | | | 9-049 | | | | | | | | / | + +------+--------+ +--------+--------+--------+ | Spacer Cc Acf Lordotic 7mm | | N/A: | MUSCULOSKEL | | 05/20/ | [id number] | | Adv - | | Neck | ETAL | | 2018 | | | [id number]: | | | TRANSPLA - | | | /[id number] | | Qty: 1 on 08/18/2015 by | | | [facility] | | | [id number] | | Alvaro Rose DO | | | | | | 048 / | + +------+--------+ +--------+--------+--------+ | Spacer Cc Acf Lordotic 7mm | | N/A: | MUSCULOSKEL | | 05/20/ | [id number] | | Adv - | | Neck | ETAL | | 2018 | | | [id number]: | | | TRANSPLA - | | | /[id number] | | Qty: 1 on 08/18/2015 by | | | [facility] | | | [id number] | | Alvaro Rose DO | | | | | | 047 / | + +------+--------+ +--------+--------+--------+ | Plate Ant [place] Cerv | | N/A: | MED[employer]IC - | | | [id number] | | 47.5mm - [id number]: | | Spine | MEDT | | | 7 / / | | Qty: 1 on 08/18/2015 by | | Cervic | | | | | | Alvaro Rose DO | | al | | | | | + +------+--------+ +--------+--------+--------+ | Screw Slf-Tp V/A 4.0x19mm - | | N/A: | MEDTRONIC - | | | [id number] | | [id number]: Qty: 6 on | | Spine | [...] | | + +--------+ +--------+ +---------+------+ | [facility] | PHP | [id number] | 09/30/19 | [phone] | | PPO [...] | Self | [birth year] | [address] | | | al/Taye | | 1965 | [phone] | [place] [address] | | | rachel | | | 4 (Home) | | + +--------+ +--------+ + + Advance Directives Patient has advance care planning documents, and code status on file. For more information, please contact:[facility] and [place] [address] + + + + + | Code Status | Date | Date | Comments | | | Activated | Inactivated | | + + + + + | Full Code | 08/18/2015 | 08/19/2015 | | | | 14:51 | 14:33 | | + + + + +
[2019-01-06] MEDS ORDERED: NABUMETONE750 MG PO (11:19)
[2019-01-06] MEDS ORDERED: LISINOPRIL20 MG PO (11:20)
--- NOTE | 2019-01-06 14:00 | EKG ---
[facility] [address] [place] [address] Signed Sinus rhythm with sinus arrhythmia with occasional premature ventricular complexes Inferior infarct , age undetermined Abnormal ECG No previous ECGs available Confirmed by NAZIA TILLMAN MD ([id number]) on 01/06/2019 2:00:50 PM Electronically Signed By: NAZIA TILLMAN MD 01/06/19 1400 PATIENT NAME: JUANKatPOOJA FANNY Electrocardiogram DATE OF : 69 PHYSICIAN: NAZIA TILLMAN MD REPORT #: [id number] REPORT IS CONFIDENTIAL AND NOT TO BE RELEASED WITHOUT AUTHORIZATION
--- NOTE | 2019-01-06 14:01 | EKG ---
[facility] [address] [facility] [place] [address] Signed Normal sinus rhythm Normal ECG When compared with ECG of 06-JAN-2019 11:09, (Unconfirmed) premature ventricular complexes are no longer present Confirmed by NAZIA TILLMAN MD ([id number]) on 01/06/2019 2:01:28 PM Electronically Signed By: NAZIA TILLMAN MD 01/06/19 1401 PATIENT NAME: POOJA HERNANDEZ Electrocardiogram DATE OF : 69 PHYSICIAN: NAZIA TILLMAN MD REPORT #: [id number] REPORT IS CONFIDENTIAL AND NOT TO BE RELEASED WITHOUT AUTHORIZATION
== END 2019-01-06 15:34 | disposition home or self-care (01) ==
LOC: ED 11:03
DX: R07.89 Other chest pain (principal); I10 Essential (primary) hypertension
CPT/HCPCS: 80053; 84484; 85025; 93005; 93010; 99285-25

== ENCOUNTER 2019-03-26 21:17 | Emergency (ER) | payer OTHER ==
[~2019-03-26] VITALS: Ht 190.5 cm; Wt 124.7 kg
[~2019-03-26 21:17] MED LIST: LISINOPRIL20 MG PO; NABUMETONE750 MG PO
[2019-03-26] MEDS ORDERED: LISINOPRIL20 MG PO (21:30)
[2019-03-26] MEDS ORDERED: PERCOCET 5-3251 EACH PO (22:25)
== END 2019-03-26 23:01 | disposition home or self-care (01) ==
LOC: ED 21:17
DX: M10.9 Gout, unspecified (principal); I10 Essential (primary) hypertension; Z90.49 Acquired absence of other specified parts of digestive tract; Z79.899 Other long term (current) drug therapy
CPT/HCPCS: 99283